=== PATIENT | female | born 1990 | race Caucasian/White ===

== ENCOUNTER → 2017-05-28 | Day surgery (SDC) | payer OTHER ==
[~2017-05-28] VITALS: Ht 170.2 cm; Wt 55.8 kg
[~2017-05-28] MED LIST: DEPO-PROVE150 MG/11 IM; ESCITALOPRAM OX10 MG PO; KEFLEX500 M1 PO; PYRIDIUM200 M1 PO; VITAMIN D350000 UNIT PO
--- NOTE | 2017-05-28 13:30 | Operative Report ---
Operative/Inv Procedure Report Surgery Date: 05/28/17 Name of Procedure: LEEP Pre-Operative Diagnosis: JOHNY-3 Post-Operative Diagnosis: JOHNY-3 Estimated Blood Loss: scant Surgeon/Industrial Relations Worker: Hector DONALDSON,Sushil Corrales Anesthesia: TIVA Specimens: leep AND POST PROCEDURE ECC Complications: None Condition: Good Operative Indication: JOHNY-3 Operative/Procedure Note Note: The patient was brought to the operating room timeout was conducted while the patient was awake. After the induction of anesthesia patient was prepped and draped in usual sterile fashion and positioned in low stirrups. She was grounded and insulated speculum was placed in the vagina cervix was infiltrated with a dilute solution of lidocaine with epinephrine. The endocervical canal was noted to be straight. The cervix was painted with Lugol's solution out- lining in the area of dysplasia A large loop electrode was utilized to remove the transformation zone this was then sent to pathology for examination. This was followed by a ECC. Hemostasis was achieved with electrocautery followed by Monsel solution once excellent hemostasis was achieved the speculum was removed patient was awakened and moved to the recovery room in good condition sponge instument and needle counts were correct 3
== END ==
LOC: STS 01:20
DX: D06.7 Carcinoma in situ of other parts of cervix (principal)
CPT/HCPCS: 81025; J2250